=== PATIENT | female | born 1980 | race Caucasian/White ===

== ENCOUNTER 2022-02-18 11:29 | Emergency (ER) | payer BC, SELFPAY ==
[2022-02-18 11:42] VITALS: BP 121/75; PULSE 52; RESP 16; TEMP 36.7; O2SAT 100
--- NOTE | 2022-02-18 12:30 | ED.SKABFB ---
HPI - Skin/Abscess/Foreign Bdy General Chief complaint: Skin/Abscess/Foreign Body Stated complaint: Rash On Bothe Breast Time Seen by Provider: 02/18/22 13:05 Source: patient and RN notes reviewed Mode of arrival: ambulatory Limitations: no limitations History of Present Illness HPI narrative: 41-year-old female presents concern for rash to her bilateral breasts. Reports several days ago she had biopsies to the breast. Reports there was adhesive tape and Steri-Strips applied to the skin she denies using any bandages. She reports in the area surrounding both biopsy sites that she has a burning red rash. She denies any breast pain. She denies general malaise, fever. MD complaint: rash Related Data Home Medications Medication Instructions Recorded Confirmed levonorgestrel 20 mcg/24 hours (7 1 device intrauterine ONCE 08/31/20 02/18/22 yrs) 52 mg intrauterine device (Mirena) Allergies Allergy/AdvReac Type Severity Reaction Status Date / Time No Known Allergies Allergy Verified 02/18/22 13:07 Review of Systems Review of Systems: CONSTITUTIONAL: Denies malaise, chills, sweats, or fever. EYES: Denies redness, or discharge. ENT: Denies rhinorrhea, congestion, swollen lips, swollen tongue CARDIOVASCULAR: Denies chest pain, palpitations, or edema. RESPIRATORY: Denies cough or dyspnea. GASTROINTESTINAL: Denies abdominal pain, nausea, vomiting SKIN: Reports rash on bilateral breasts MUSCULOSKELETAL: Denies joint pain or myalgia. NEUROLOGIC: Denies headache. All systems reviewed & are unremarkable except as noted in HPI and below PMFSH Past Medical History Medical History Kidney stone Right hand pain Surgical History Surgical History H/O resection of stomach Family History Family History Grandparent Alcoholism Cancer Hypertension Heart disease Mother Depression Social History Social History Smoking status: Never smoker Alcohol intake: current Gender identity (if verbalized by the patient): Female Comments At time of signature, agree with nursing past medical, surgical, social and family history. There is no relevant family history pertinent to the presenting complaint Exam Narrative: GENERAL: Well-appearing, well-nourished, and in no acute distress. HEAD: Normocephalic, atraumatic. EYES: PERRLA, conjunctivae clear, and EOMI. ENT: Mucous membranes moist. Oropharynx without edema, erythema or lesions. NECK: Supple. No lymphadenopathy CHEST: Clear to auscultation. No respiratory distress. HEART: Regular rate and rhythm. SKIN: Warm, dry. Patch of erythema, plaque with honey colored crusts approximately 6 cm x 3 cm noted to the left breast surrounding a biopsy site. No warmth, induration, fluctuation, drainage noted. Erythema with some plaque noted to the left breast surrounding the biopsy site approximately 4 cm x 3 cm without induration, warmth, fluctuation, drainage NEURO: Alert and oriented x3. PSYCH: Normal mood and affect Course Course Emergency Course: Discussed with patient that this could either be a contact dermatitis or possibly impetigo on the left breast honey colored crust. I will treat with topical mupirocin and oral steroids and have her follow-up with her autism specialist Patient is aware of diagnosis, understands and agrees to treatment plan. Anticipatory guidance given. Patient agrees to follow-up as directed and is aware of reasons to seek care at the emergency department. Portions of this record may have been created with voice recognition software Level of Care: Express Care Visit Vital Signs Vital signs: Vital Signs Temperature 98.0 F 02/18/22 11:42 Pulse Rate 52 L 02/18/22 11:42 Respiratory Rate 16 02/18/22 11:42 Blood Pressure 121/75 01/25
== END 2022-02-18 13:28 | disposition home or self-care (01) ==
PROVIDERS: Emergency Provider Nurse Practitioner; PCP Obstetrics & Gynecology
DX: R21 Rash and other nonspecific skin eruption (principal)
CPT/HCPCS: 99213; G0463